=== PATIENT | male | born 1960 | race Caucasian/White ===

== ENCOUNTER 2022-05-02 06:58 | Emergency (ER) | payer SELFPAY ==
[~2022-05-02] VITALS: Ht 175.3 cm; Wt 113.0 kg
[2022-05-02 07:30] VITALS: BP 130/110
[2022-05-02] MEDS ORDERED: LIDOCAINE HCL (LOCAL ANESTH.) 0.5 % 50ML MDV IJ ONE (07:45)
[2022-05-02] MEDS ORDERED: cefTRIAXone SOD 1,000 MG VL IM ONE (07:45)
[2022-05-02] MEDS ORDERED: TETANUS-DIPTH-ACEL PERTUSSIS 0.5ML SYR Tdap IM ONE (07:45)
[2022-05-02] MEDS ORDERED: HYDROcodone-ACET 5/325MG TAB PO ONE (08:15)
[2022-05-02] MEDS ORDERED: CEPH-510 PO (08:51)
[2022-05-02] MEDS ORDERED: HYDR-4902 PO (08:51)
[2022-05-02] MEDS ORDERED: NEOMYCIN-BACITRACIN-POLYM UNITDOSE PKG TOP OINT TOP ONE (11:00)
[2022-05-02] MEDS ORDERED: BACDST PO (11:19)
== END 2022-05-02 11:17 | disposition home or self-care (01) ==
LOC: ER 06:58
DX: S62.664B Nondisplaced fracture of distal phalanx of right ring finger, initial encounter for open fracture (principal); E11.9 Type 2 diabetes mellitus without complications; I10 Essential (primary) hypertension; E78.5 Hyperlipidemia, unspecified; X58.XXXA Exposure to other specified factors, initial encounter; Y93.89 Activity, other specified; Y92.89 Other specified places as the place of occurrence of the external cause; Y99.8 Other external cause status
CPT/HCPCS: 29130; 73130; 90471; 90715; 96372; 99284; J0696

== ENCOUNTER 2022-10-18 11:43 | Emergency (ER) | payer OTHER ==
[~2022-10-18] VITALS: Ht 175.3 cm; Wt 112.5 kg
[~2022-10-18 11:43] MED LIST: BACDST PO; CEPH-510 PO; HYDR-4902 PO
[2022-10-18] MEDS ORDERED: ceFAZolin 1GM/50ML 50 ML IV ONE (13:45)
[2022-10-18] MEDS ORDERED: HYDR-4902 PO (15:52)
[2022-10-18] MEDS ORDERED: CEPH500C PO (15:55)
[2022-10-18 16:07] VITALS: BP 139/83
== END 2022-10-18 16:18 | disposition home or self-care (01) ==
LOC: ER 11:43
DX: S62.522B Displaced fracture of distal phalanx of left thumb, initial encounter for open fracture (principal); I10 Essential (primary) hypertension; E11.9 Type 2 diabetes mellitus without complications; E78.5 Hyperlipidemia, unspecified; F15.90 Other stimulant use, unspecified, uncomplicated; Z79.1 Long term (current) use of non-steroidal anti-inflammatories (NSAID); Z79.899 Other long term (current) drug therapy; X58.XXXA Exposure to other specified factors, initial encounter; Y93.89 Activity, other specified; Y92.89 Other specified places as the place of occurrence of the external cause; Y99.8 Other external cause status
CPT/HCPCS: 12002; 73130; 96365; 99284; J0690